=== PATIENT | female | born 1985 ===

== ENCOUNTER 2017-01-28 12:47 | Outpatient (CLI) | payer OTHER | END 2017-01-28 12:48 | disposition home or self-care (01) | LOC: BICRAD 12:47 | PROVIDERS: ATTEND Nurse Practitioner Family | DX: M25.571 Pain in right ankle and joints of right foot (principal); M25.471 Effusion, right ankle ==

== ENCOUNTER 2017-05-03 11:17 | Outpatient (CLI) | payer OTHER | END 2017-05-03 11:18 | disposition home or self-care (01) | LOC: BICRAD 11:17 | PROVIDERS: ATTEND Nurse Practitioner Family | DX: M25.551 Pain in right hip (principal) ==